=== PATIENT | male | born 1995 | race Caucasian/White ===

== ENCOUNTER 2017-01-28 13:57 | Emergency (ER) | payer BC ==
--- NOTE | 2017-01-28 14:26 | ED Physician Chart ---
ED Chief Complaint/HPI - Patient Information Date Seen:: 01/28/17 Time Seen:: 14:15 Chief Complaint:: R facial injury History of Present Illness:: Brought in by private auto for the above reason. Pt fell [place] at about 1 pm today. Pt does not recall how he fell. Pt admits having drug "mushroom" use at about 11 am today just prior to his hike. Pt denies any [place], visual changes in terms of blurry vision or diplopia. No ataxia, weakness or numbness. No N/V/D. No lightheadedness or dyspnea. Pt further denies any visual or auditory hallucination. No depressed mood, H.I. or S.I. Last tetanus immunization is unknown. Allergies:: Allergies Allergy/AdvReac Type Severity Reaction Status Date / Time No Known Allergies Allergy Verified 01/28/17 14:13 Vitals:: Vital Signs - 8 hr 01/28/17 14:13 Temp 98.1 F HR 66 RR 16 BP 141/83 O2 Sat % 99 Historian:: Patient Family MD/PCP:: unknown LMP:: N/A Review:: Nurse's Note Reviewed ED Review of Systems - Review of Systems General/Constitutional: No fever, No weight loss, No weakness, No diaphoresis, No edema, No loss of appetite Skin: Other (R facial injury.) Head: No headache, No light-headedness Eyes: No loss of vision, No pain, No diplopia ENT: No earache, No nasal drainage, No sore throat, No tinnitus Neck: No neck pain, No swelling, No thyromegaly, No stiffness, No mass noted Cardio Vascular: No chest pain, No palpitations, No edema Pulmonary: No SOB, No cough, No wheezing GI: No nausea, No vomiting, No diarrhea, No pain G/U: No dysuria, No frequency Musculoskeletal: No bone or joint pain, No back pain, No muscle pain Endocrine: No polyuria, No polydipsia Psychiatric: No prior psych history, No depression, No anxiety, No suicidal ideation, No homicidal ideation, No auditory hallucination, No visual hallucination Hematopoietic: Bruising (on R face after his fall earlier today.), No lymphadenopathy Allergic/Immuno: No urticaria, No angioedema Neurological: Syncope (?), No focal symptoms, No weakness, No paresthesia, No headache, No seizure, No dizziness, No confusion, No vertigo ED Past Medical History - Past Medical History Past Medical History: No significant medical hx Family History: None Social History: Non Smoker, No Alcohol, Illicit Drug Use (with "mushroom". Pt has been informed about health risks associated with illicit drug use and has been advised to quit. Pt acknowledges understanding.), Single, Other (lives with roommates.) Employment:: student. Surgical History: Appendectomy (about 2 y/a) Psychiatricy History: None Medication: None Family Medical History - Family Member Mother Hx Family Cancer: No Hx Family Coronary Artery Disease: No Hx Family Stroke: No Hx Family Seizures: No Hx Family Dementia: No Hx Family Hepatitis: No Hx Family Psychiatric Problems: No ED Physical Exam - Physical Examination General/Constitutional: Awake, Well-developed, well-nourished, Alert, No distress, GCS 15, Non-toxic appearing, Ambulatory Other Gen/Cons comments:: Breathes comfortably, speaks clearly, interacts normally, and ambulates without difficulty. Head: Atraumatic (except an approx. 4 x 4 cm abrasion noticed in R face inferolateral to R orbit. Nontender. No bony tapering or active bleeding. There is also an approx. 2x3 cm superficial abrasion noticed at R chin with trace ecchymosis at R lower lip. No bony tapering. Good ROM of upper and lower jaws. ) Eyes: Lids, conjuctiva normal, PERRL, EOMI Skin: Well hydrated, No lymphadenopathy Other Skin comments:: Good color and turgor. ENMT: TM canals nl (No hemoptympanum.), Lips, teeth, gums nl (except mild ecchymosis in R lower lip. ), Oropharynx nl (Mild tenderness at mid portion of nose. No gross deformity. No bleeding in nasal passage. No septal hematoma.) Neck: Nontender, Full ROM w/o pain, No JVD, No nuchal rigidity, No mass, No stridor Respiratory: Nl effort/Exclusion, Clear to Auscultation, No Wheeze/Rhonchi/Rales Cardio Vascular: RRR, No murmur, gallop, rubs GI: No tenderness/rebounding/guarding, No organomegaly, No hernia, Normal BS's, Nondistended, No mass/bruits Other GI comments:: Abdomen is soft. Extremities: No tenderness or effusion, Full ROM, normal strength in all extremities, No edema, Normal digits & nails Other Extremities comments:: There is mild superficial abrasion noticed at lateral aspect of R shoulder, R knee, dorsum of L forearm. All these affected areas are nontender. No deformity , swelling, or exudate. R shoulder and R knee have FROM. No other abnormalities. No motor/sensory/vascular deficit detected. Neuro/Psych: Alert/oriented (oriented x 3), DTR's symmetric, Normal sensory exam , Normal motor strength, Mood normal, Normal gait, No focal deficits Other Neuro/Psych comments:: CN II to XII are grossly intact. Cerebellar exam (F to N, ARUN): Normal. ED Labs/Radiology/EKG Results - Lab Results Results: Laboratory Tests 01/28/17 01/28/17 01/28/17 14:47 14:47 14:47 WBC 10.5 RBC 5.36 Hgb 16.1 Hct 47.7 MCV 88.9 MCH 29.9 MCHC Differential 33.6 RDW 11.7 Plt Count 233 MPV 7.7 Neutrophils % 82.8 H Lymphocytes % 9.9 L Monocytes % 5.6 Eosinophils % 0.8 Basophils % 0.9 PT 11.3 INR 1.09 PTT (Actin FS) 23.9 L Sodium 135 L Potassium 4.3 Chloride 101 Carbon Dioxide 29.8 Anion Gap 8.5 BUN 19 Creatinine 1.1 Est GFR ( Amer) > 60.0 Est GFR (Non-Af Amer) > 60.0 BUN/Creatinine Ratio 17.3 Glucose 113 H Calcium 10.5 H Total Bilirubin 0.9 AST 20 ALT 20 Alkaline Phosphatase 79 Creatine Kinase 331 H CK-MB (CK-2) 3.1 Troponin I Total Protein 7.3 Albumin 4.9 Globulin 2.4 Albumin/Globulin Ratio 2.0 H Salicylates Acetaminophen Ethyl Alcohol 01/28/17 01/28/17 01/28/17 14:47 14:47 14:47 WBC RBC Hgb Hct MCV MCH MCHC Differential RDW Plt Count MPV Neutrophils % Lymphocytes % Monocytes % Eosinophils % Basophils % PT INR PTT (Actin FS) Sodium Potassium Chloride Carbon Dioxide Anion Gap BUN Creatinine Est GFR ( Amer) Est GFR (Non-Af Amer) BUN/Creatinine Ratio Glucose Calcium Total Bilirubin AST ALT Alkaline Phosphatase Creatine Kinase CK-MB (CK-2) Troponin I < 0.01 L Total Protein Albumin Globulin Albumin/Globulin Ratio Salicylates < 25.0 L Acetaminophen < 10.0 L Ethyl Alcohol < 10 - Radiology Results Results: Facial bone CT: Nondisplaced nasal bone fractures. Official report per Dr. Carlos A Arnold, radiologist. Laboratory Last Values WBC 10.5 Th/cmm (4.8-10.8) 01/28/17 14:47 RBC 5.36 Mil/cmm (4.30-5.70) 01/28/17 14:47 Hgb 16.1 gm/dL (12-16) 01/28/17 14:47 Hct 47.7 % (41.0-60) 01/28/17 14:47 MCV 88.9 fl (80-99) 01/28/17 14:47 MCH 29.9 pg (26.0-30.0) 01/28/17 14:47 MCHC Differential 33.6 pg (28.0-36.0) 01/28/17 14:47 RDW 11.7 % (11.5-20.0) 01/28/17 14:47 Plt Count 233 Th/cmm (150-400) 01/28/17 14:47 MPV 7.7 fl 01/28/17 14:47 Neutrophils % 82.8 % (40.0-80.0) H 01/28/17 14:47 Lymphocytes % 9.9 % (20.0-50.0) L 01/28/17 14:47 Monocytes % 5.6 % (2.0-10.0) 01/28/17 14:47 Eosinophils % 0.8 % (0.0-5.0) 01/28/17 14:47 Basophils % 0.9 % (0.0-2.0) 01/28/17 14:47 PT 11.3 SECONDS (9.5-11.5) 01/28/17 14:47 INR 1.09 (0.5-1.4) 01/28/17 14:47 PTT (Actin FS) 23.9 SECONDS (26.0-38.0) L 01/28/17 14:47 Sodium 135 mEq/L (136-145) L 01/28/17 14:47 Potassium 4.3 mEq/L (3.5-5.1) 01/28/17 14:47 Chloride 101 mEq/L (98-107) 01/28/17 14:47 Carbon Dioxide 29.8 mEq/L (21.0-31.0) 01/28/17 14:47 Anion Gap 8.5 (7.0-16.0) 01/28/17 14:47 BUN 19 mg/dL (7-25) 01/28/17 14:47 Creatinine 1.1 mg/dL (0.7-1.3) 01/28/17 14:47 Est GFR ( Amer) > 60.0 ml/min (>90) 01/28/17 14:47 Est GFR (Non-Af Amer) > 60.0 ml/min 01/28/17 14:47 BUN/Creatinine Ratio 17.3 01/28/17 14:47 Glucose 113 mg/dL (70-105) H 01/28/17 14:47 Calcium 10.5 mg/dL (8.6-10.3) H 01/28/17 14:47 Total Bilirubin 0.9 mg/dL (0.3-1.0) 01/28/17 14:47 AST 20 U/L (13-39) 01/28/17 14:47 ALT 20 U/L (7-52) 01/28/17 14:47 Alkaline Phosphatase 79 U/L (34-104) 01/28/17 14:47 Creatine Kinase 331 U/L (30-223) H 01/28/17 14:47 CK-MB (CK-2) 3.1 ng/mL (0.6-6.3) 01/28/17 14:47 Troponin I < 0.01 ng/mL (0.01-0.05) L 01/28/17 14:47 Total Protein 7.3 gm/dL (6.0-8.3) 01/28/17 14:47 Albumin 4.9 gm/dL (4.2-5.5) 01/28/17 14:47 Globulin 2.4 gm/dL 01/28/17 14:47 Albumin/Globulin Ratio 2.0 (1.0-1.8) H 01/28/17 14:47 Salicylates < 25.0 mg/L (30.0-100.0) L 01/28/17 14:47 Acetaminophen < 10.0 ug/mL (10.0-30.0) L 01/28/17 14:47 Ethyl Alcohol < 10 mg/dL (0-10) 01/28/17 14:47 - EKG Interpretations EKG Time:: 14:53 Rate & Rhythm: NSR with VR 65 Comments:: J point elevation noticed in precordial leads. No acute ischemic changes. quality assurance monitor final: NSR with VR 65. No ectopy. ED Septic Shock - . Is Septic Shock (SBP<90, OR Lactate>4 mmol\\L) present?: No - <6hrs of presentation: Vital Signs: Vital Signs - 8 hr 01/28/17 14:13 Temp 98.1 F HR 66 RR 16 BP 141/83 O2 Sat % 99 ED Reassessment (Disposition) - Reassessment Reassessment:: 1600 Pt has been repeatedly evaluated. Pt remains stable and comfortable. Available lab findings, EKG and CT findings have been reviewed with pt. Management plan has been discussed. Poison Control has been contacted per nursing staff. Poison Control recommended additional observation for 4 more hours and repeat CBC and CMP in 4 hours. 1900 Pt has been stable and comfortable. Awaiting repeat CBC and CMP. Case has been signed off to Dr. Conklin for continued care. Reassessment Condition:: Improved - Diagnosis Diagnosis:: H/O drug abuse with "mushroom" S/P fall, resulting in nondisplaced nasal fracture, R facial, R shoulder, R knee and L forearm abrasion, and lower lip contusion.
[2017-01-28] MEDS ORDERED: Triple Antibiotic 0.94 gm Pkt TP STA (14:42)
[2017-01-28] MEDS ORDERED: Bacitracin pkt 1 gm Pkt TP ONE (14:48)
[2017-01-28 15:00] LABS: % BASOPHILS 0.9 % (0.0-2.0); % EOSINOPHILS 0.8 % (0.0-5.0); % LYMPHOCYTES 9.9 % (20.0-50.0); % MONOCYTES 5.6 % (2.0-10.0); % NEUTROPHILS 82.8 % (40.0-80.0); HEMATOCRIT 47.7 % (41.0-60); HEMOGLOBIN 16.1 gm/dL (12-16); MEAN CELL VOLUME 88.9 fl (80-99); MEAN CORPUSCULAR HEMOGLOBIN 29.9 pg (26.0-30.0); MEAN CORPUSCULAR HGB CONC 33.6 pg (28.0-36.0); MEAN PLATELET VOLUME 7.7 fl; NEUTROPHILE ABSOLUTE 8.7 Th/cmm (1.8-8.0); PLATELET COUNT 233 Th/cmm (150-400); RED BLOOD COUNT 5.36 Mil/cmm (4.30-5.70); RED CELL DISTRIBUTION WIDTH 11.7 % (11.5-20.0); WHITE BLOOD COUNT 10.5 Th/cmm (4.8-10.8)
[2017-01-28 15:11] LABS: INR 1.09 (0.5-1.4); PROTHROMBIN TIME (TEST) 11.3 SECONDS (9.5-11.5)
[2017-01-28 15:15] LABS: ALKALINE PHOSPHATASE 79 U/L (34-104); ANION GAP 8.5 (7.0-16.0); BILIRUBIN,TOTAL 0.9 mg/dL (0.3-1.0); BUN - UREA NITROGEN 19 mg/dL (7-25); BUN/CREATININE RATIO 17.3; CALCIUM SERUM 10.5 mg/dL (8.6-10.3); CARBON DIOXIDE 29.8 mEq/L (21.0-31.0); CHLORIDE 101 mEq/L (98-107); CREATININE - SERUM 1.1 mg/dL (0.7-1.3); GLUCOSE 113 mg/dL (70-105); POTASSIUM SERUM 4.3 mEq/L (3.5-5.1); SGOT 20 U/L (13-39); SGPT/ALT 20 U/L (7-52); SODIUM SERUM 135 mEq/L (136-145)
[2017-01-28 15:43] LABS: CREATINE KINASE MB 3.1 ng/mL (0.6-6.3)
[2017-01-28 16:32] LABS: ACETAMINOPHEN < 10.0 ug/mL (10.0-30.0)
[2017-01-28 19:36] LABS: % BASOPHILS 0.1 % (0.0-2.0); % EOSINOPHILS 0.4 % (0.0-5.0); % LYMPHOCYTES 11.6 % (20.0-50.0); % MONOCYTES 3.6 % (2.0-10.0); % NEUTROPHILS 84.3 % (40.0-80.0); HEMATOCRIT 48.8 % (41.0-60); HEMOGLOBIN 16.3 gm/dL (12-16); MEAN CELL VOLUME 88.2 fl (80-99); MEAN CORPUSCULAR HEMOGLOBIN 29.4 pg (26.0-30.0); MEAN CORPUSCULAR HGB CONC 33.4 pg (28.0-36.0); MEAN PLATELET VOLUME 7.3 fl; NEUTROPHILE ABSOLUTE 8.9 Th/cmm (1.8-8.0); PLATELET COUNT 271 Th/cmm (150-400); RED BLOOD COUNT 5.53 Mil/cmm (4.30-5.70); RED CELL DISTRIBUTION WIDTH 11.5 % (11.5-20.0); WHITE BLOOD COUNT 10.5 Th/cmm (4.8-10.8)
[2017-01-28 19:53] LABS: ALB/GLOB RATIO 1.7 (1.0-1.8); ALKALINE PHOSPHATASE 82 U/L (34-104); ANION GAP 9.4 (7.0-16.0); BUN - UREA NITROGEN 16 mg/dL (7-25); CALCIUM SERUM 10.6 mg/dL (8.6-10.3); CARBON DIOXIDE 29.5 mEq/L (21.0-31.0); CHLORIDE 98 mEq/L (98-107); GLUCOSE 133 mg/dL (70-105); POTASSIUM SERUM 3.9 mEq/L (3.5-5.1); SGOT 20 U/L (13-39); SGPT/ALT 21 U/L (7-52); SODIUM SERUM 133 mEq/L (136-145)
--- NOTE | 2017-01-29 08:19 | Diagnostic Imaging Report ---
Exam: CT examination of facial bones. HISTORY: Facial injury. Total DLP equals 750 CTDI equals 11.6 Findings: Multiple views of the facial bones obtained in axial plane with coronal sagittal reconstruction technique. The study demonstrates a nondisplaced fracture of nasal bones. Nasal septum is intact. The zygomatic arches are normal. The orbits are intact. The globes are intact. The paranasal sinuses are well aerated. The mandible and maxilla are intact. IMPRESSION: Nondisplaced fracture nasal bones.
== END 2017-01-28 20:05 | disposition home or self-care (01) ==
LOC: ER 13:57
DX: S02.2XXA Fracture of nasal bones, initial encounter for closed fracture (principal); S00.531A Contusion of lip, initial encounter; S00.81XA Abrasion of other part of head, initial encounter; S40.211A Abrasion of right shoulder, initial encounter; S80.211A Abrasion, right knee, initial encounter; S50.812A Abrasion of left forearm, initial encounter; W19.XXXA Unspecified fall, initial encounter; Y93.89 Activity, other specified; Y99.8 Other external cause status; Y92.89 Other specified places as the place of occurrence of the external cause
CPT/HCPCS: 99285; 93005; 70486; 84484; 36415; 85025 ×2; 85610; 80329 ×2; 80320; 82550; 82553; 80053 ×2; 90715; Z7610